=== PATIENT | female | born 1985 | race American Indian/Alaskan Native ===

== ENCOUNTER 2019-07-17 18:24 | Emergency (ER) | payer OTHER ==
[2019-07-17] MEDS ORDERED: IBUPROFEN PO ONE ×2 (18:34→18:36)
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
[2019-07-17] MEDS ORDERED: PERCOCET 5/325 PO STA (20:30)
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
[2019-07-17 22:42] VITALS: BP 136/94
== END 2019-07-17 22:40 | disposition home or self-care (01) ==
LOC: ED 18:24
DX: M54.6 Pain in thoracic spine (principal); M54.5 Low back pain; M79.10 Myalgia, unspecified site; I10 Essential (primary) hypertension; F17.200 Nicotine dependence, unspecified, uncomplicated; F12.10 Cannabis abuse, uncomplicated; Z79.899 Other long term (current) drug therapy; V89.2XXA Person injured in unspecified motor-vehicle accident, traffic, initial encounter; Y93.89 Activity, other specified; Y92.488 Other paved roadways as the place of occurrence of the external cause; Y99.8 Other external cause status
CPT/HCPCS: 72070; 72100; 99283